=== PATIENT | female | born 2000 | race Two or more races ===

== ENCOUNTER → 2021-06-10 | Outpatient (CLI) | payer OTHER ==
--- NOTE | 2021-06-10 16:57 | DIREP ---
PROCEDURE:US PELVIS COMPLETE COMPARISON:None. INDICATIONS:N83.209 OVARIAN CYST TECHNIQUE:Pelvic ultrasound using transabdominal technique. Endovaginal imaging was not performed. FINDINGS: Uterus Uterus Length:7.39 cm Uterus Height:3.22 cm Uterus Width:4.62 cm Endometrium Thickness:0.43 cm Ovaries Right Ovary Width:3.03 cm Right Ovary Length:4.26 cm Right Ovary Height:1.67 cm Left Ovary Width:2.31 cm Left Ovary Length:4.09 cm Left Ovary Height:3.03 cm UTERUS:Unremarkable appearance. Endometrial thickness is normal. OVARIES:Normal bilateral appearance with no significant masses. Each ovary is normal in size for a patient of this age. CUL-DE-SAC:Negative. OTHER:Negative. CONCLUSION:Normal exam. No identifiable ovarian cyst. Dictated by: Martin Sinha MD on 06/10/2021 at 04:54 PM
== END | disposition home or self-care (01) ==
LOC: RAD 15:07
PROVIDERS: ATTEND Nurse Practitioner Women's Health
DX: N83.209 Unspecified ovarian cyst, unspecified side (principal)
CPT/HCPCS: 76856